=== PATIENT | male | born 1970 | race Caucasian/White ===

== ENCOUNTER → 2017-11-05 | Day surgery (SDC) | payer OTHER ==
[~2017-11-05] VITALS: Ht 182.9 cm; Wt 99.8 kg
--- NOTE | 2017-11-05 12:47 | Operative Report ---
Operative/Inv Procedure Report Surgery Date: 11/05/17 Name of Procedure: Bilateral vasectomy, extensive CO2 laser fulguration of genital condyloma Pre-Operative Diagnosis: Request for sterilization. Genital condyloma Post-Operative Diagnosis: same Estimated Blood Loss: scant Surgeon/Evaporative Cooler Installer: Noemi SALCEDO,Jamie Chang Anesthesia: laryngeal mask airway Drains: none Specimens: R and L vas Complications: none Condition: stable Operative Indication: Request for sterilization and extensive gential condyloma Operative/Procedure Note Note: The patient was taken to the operating room and identified. He was placed in supine position on the operating table. A timeout was executed appropriately with the patient awake. Gen. anesthesia was induced via LMA. He was then prepped and draped in usual fashion for scrotal surgery. The left vas was isolated. The skin area over lying the vas was infiltrated with lidocaine. A 1 /4 inch incision was made overlying the vas. With blunt dissection the vas was dissected free of the surrounding tissue and grasped with an Allis clamp and pulled up out of the incision. It was then skeletonized. 4 hemoclips were then placed on a 2 proximally and 2 distally area and a segment of vas in between the hemoclips was excised and the free ends fulgurated. No bleeding was noted at this point. The vas was placed back into the left hemiscrotum and the scrotal wall closed with 3-0 chromic interrupted sutures. Next the right vasectomy was done in exactly the same manner. At this point the drape was taken off the patient and wet towels were placed around the genital area. The CO2 laser was then used to fulgurate multiple extensive condyloma. The laser setting for most of the procedure was 3 W continuous. For one of the larger condyloma 5 W was used. All condyloma were fulgurated. Bacitracin was placed on the area and a scrotal support placed. Findings: Normal vas bilaterally. Extensive genital condyloma Discharge Disposition: PACU
== END ==
LOC: STS 00:50
DX: Z30.2 Encounter for sterilization (principal); A63.0 Anogenital (venereal) warts
CPT/HCPCS: J0690; J1100; J1885; J2001; J2250; J2405